=== PATIENT | female | born 1975 | race Caucasian/White ===

== ENCOUNTER 2020-10-21 09:14 | Emergency (ER) | payer OTHER ==
[2020-10-21 12:13] LABS: BUN/CREATININE RATIO 20 (0-10)
[2020-10-21 12:22] LABS: HEMOGLOBIN 14.6 gm/dl (12.3-15.3); RED BLOOD COUNT 5.72 M/UL (4.00-5.10); WHITE BLOOD COUNT 14.7 K/UL (4.5-11.0)
== END 2020-10-21 14:50 | disposition short-term general hospital (02) ==
LOC: ER1 09:14
PROVIDERS: Nurse Practitioner
DX: G93.89 Other specified disorders of brain (principal); F17.210 Nicotine dependence, cigarettes, uncomplicated
CPT/HCPCS: 0240U; 70450; 80053; 81001; 83605; 83690; 84703; 85025; 85610; 96374; 96376; 99285; J1100; J2405

== ENCOUNTER → 2020-12-13 | Outpatient (CLI) | payer OTHER | LOC: OPSV 10:42 | DX: C71.9 Malignant neoplasm of brain, unspecified (principal) | CPT/HCPCS: 36430; 85049; 86900; 86901; P9035 ==

== ENCOUNTER → 2021-04-14 | Outpatient (CLI) | payer OTHER ==
[~2021-04-14] MED LIST: BENADRYL25 MG PO; MEDROL4 MG PO
== END ==
LOC: MRI 14:00
DX: C71.1 Malignant neoplasm of frontal lobe (principal); D69.6 Thrombocytopenia, unspecified; G93.0 Cerebral cysts; R93.0 Abnormal findings on diagnostic imaging of skull and head, not elsewhere classified
CPT/HCPCS: 70553; A9577

== ENCOUNTER 2021-05-05 02:34 | Emergency (ER) | payer OTHER ==
[2021-05-05 03:23] LABS: HEMOGLOBIN 14.9 gm/dl (12.3-15.3); RED BLOOD COUNT 5.24 M/UL (4.00-5.10)
[2021-05-05 03:39] LABS: BUN/CREATININE RATIO 17 (0-10)
[2021-05-05] MEDS ORDERED: BENADRYL25 MG PO (04:08)
[2021-05-05] MEDS ORDERED: MEDROL4 MG PO (04:08)
== END 2021-05-05 04:15 | disposition home or self-care (01) ==
LOC: ER1 02:34
PROVIDERS: Physician Assistant
DX: L50.9 Urticaria, unspecified (principal); C50.919 Malignant neoplasm of unspecified site of unspecified female breast; J44.9 Chronic obstructive pulmonary disease, unspecified; Z85.3 Personal history of malignant neoplasm of breast
CPT/HCPCS: 80048; 85025; 87040; 96365; 96375; 99283; J1200; J2930; J7030

== ENCOUNTER → 2021-05-30 | Outpatient (CLI) | payer OTHER | LOC: CT 11:28 | DX: C71.1 Malignant neoplasm of frontal lobe (principal); D69.6 Thrombocytopenia, unspecified; R91.1 Solitary pulmonary nodule | CPT/HCPCS: 71260; Q9967 ==

== ENCOUNTER 2021-06-06 15:59 | Emergency (ER) | payer OTHER ==
[2021-06-06 17:02] LABS: HEMOGLOBIN 15.8 gm/dl (12.3-15.3); RED BLOOD COUNT 5.39 M/UL (4.00-5.10); WHITE BLOOD COUNT 14.4 K/UL (4.5-11.0)
[2021-06-06 17:37] LABS: BUN/CREATININE RATIO 18 (0-10)
[2021-06-06] MEDS ORDERED: KEPPRA1000 MG PO (20:03)
== END 2021-06-06 20:30 | disposition home or self-care (01) ==
LOC: ER1 15:59
PROVIDERS: Family Medicine
DX: R56.9 Unspecified convulsions (principal); S00.03XA Contusion of scalp, initial encounter; D69.6 Thrombocytopenia, unspecified; X58.XXXA Exposure to other specified factors, initial encounter
CPT/HCPCS: 70450; 70553; 71045; 80053; 80307; 81001; 82550; 82553; 83605; 83874; 84484; 85025; 96374; 96375; 99285; A9577; J1953; J2060

== ENCOUNTER → 2021-09-11 | Outpatient (CLI) | payer OTHER ==
[~2021-09-11] MED LIST changes: +KEPPRA1000 MG PO
== END ==
LOC: MRI 09-08 13:00
DX: C71.1 Malignant neoplasm of frontal lobe (principal); D69.6 Thrombocytopenia, unspecified
CPT/HCPCS: 70553; A9577

== ENCOUNTER 2021-12-15 15:42 | Emergency (ER) | payer OTHER ==
[2021-12-15 16:46] LABS: HEMOGLOBIN 14.3 gm/dl (12.3-15.3); RED BLOOD COUNT 5.4 M/UL (4.00-5.10); WHITE BLOOD COUNT 11.5 K/UL (4.5-11.0)
[2021-12-15 17:03] LABS: BUN/CREATININE RATIO 21 (0-10)
[2021-12-15] MEDS ORDERED: DECADRON6 MG PO (18:15)
== END 2021-12-15 18:37 | disposition home or self-care (01) ==
LOC: ER1 15:42
PROVIDERS: Family Medicine
DX: C71.9 Malignant neoplasm of brain, unspecified (principal); E66.9 Obesity, unspecified; R29.6 Repeated falls
CPT/HCPCS: 80053; 85025; 93005; 99285

== ENCOUNTER → 2022-01-08 | Day surgery (SDC) | payer OTHER ==
[~2022-01-08] MED LIST changes: +ALPRAZOLAM0.5 MG PO; +CITALOPRAM HBR40 MG PO; +DECADRON6 MG PO; +DEXAMETHASONE 44 MG PO; +HYDROXYZINE HCL10 MG PO; +MELATONIN10 MG PO; +ONDANSETRON ODT8 MG SL; +OXYCODON-ACETA1 EAC1 PO; +PROMACTA50 MG PO; +SYMBICORT 16010.2 GM INH; +TYLENOL EXTRA500 MG PO
[2022-01-08 07:29] LABS: BUN/CREATININE RATIO 49 (0-10)
== END | disposition home or self-care (01) ==
LOC: OR 06:10
PROVIDERS: Surgery
DX: C71.9 Malignant neoplasm of brain, unspecified (principal); J44.9 Chronic obstructive pulmonary disease, unspecified; E66.01 Morbid (severe) obesity due to excess calories; Z68.43 Body mass index [BMI] 50.0-59.9, adult; Z79.899 Other long term (current) drug therapy; Z20.822 Contact with and (suspected) exposure to COVID-19; Z87.891 Personal history of nicotine dependence
CPT/HCPCS: 36415; 71045; 77001; 80048; 84703; C1769; C1788; J0690; J1100; J1642; J2001; J2250; J2405; J2704; J3010; J7040; J7120

== ENCOUNTER → 2022-01-21 | Outpatient (CLI) | payer OTHER | LOC: US 16:30 | DX: C71.1 Malignant neoplasm of frontal lobe (principal); D69.6 Thrombocytopenia, unspecified; F41.9 Anxiety disorder, unspecified | CPT/HCPCS: 93970 ==

== ENCOUNTER → 2022-03-03 | Day surgery (SDC) | payer OTHER ==
[~2022-03-03] MED LIST changes: +LASIX40 MG PO; +PERCOCET 5-3251 EACH PO; +POTASSIUM CHLO20 ME2 PO; +PREDNISONE5 MG PO
== END | disposition home or self-care (01) ==
LOC: OR 08:10
DX: T82.594A Other mechanical complication of infusion catheter, initial encounter (principal); C71.9 Malignant neoplasm of brain, unspecified; Z79.899 Other long term (current) drug therapy
CPT/HCPCS: 84703; C1769; C1788; J0690; J1100; J1170; J1642; J2001; J2250; J2405; J2704; J3010; J3370; J7040

== ENCOUNTER 2022-05-28 11:16 | Emergency (ER) | payer OTHER ==
[~2022-05-28 11:16] MED LIST changes: +CITALOPRAM HBR20 MG PO; -CITALOPRAM HBR40 MG PO; -PERCOCET 5-3251 EACH PO; +PERCOCET 7.5-31 EACH PO
[2022-05-28 12:53] LABS: HEMOGLOBIN 15.4 gm/dl (12.3-15.3); RED BLOOD COUNT 6.02 M/UL (4.00-5.10); WHITE BLOOD COUNT 14.4 K/UL (4.5-11.0)
[2022-05-28 13:18] LABS: BUN/CREATININE RATIO 32 (0-10)
[2022-06-04] MEDS ORDERED: DIFLUCAN200 MG PO (09:55)
[2022-06-04] MEDS ORDERED: ONDANSETRON ODT8 MG PO (09:55)
[2022-06-04] MEDS ORDERED: VITAMIN C1000 MG PO (09:56)
[2022-06-05] MEDS ORDERED: PROMACTA50 MG PO (08:52)
== END 2022-05-28 16:54 | disposition home or self-care (01) ==
LOC: ER1 11:16
PROVIDERS: Emergency Medicine
DX: S80.02XA Contusion of left knee, initial encounter (principal); D72.829 Elevated white blood cell count, unspecified; J44.9 Chronic obstructive pulmonary disease, unspecified; F17.290 Nicotine dependence, other tobacco product, uncomplicated; Z86.011 Personal history of benign neoplasm of the brain; W19.XXXA Unspecified fall, initial encounter
CPT/HCPCS: 70450; 71045; 73564; 80053; 81001; 82550; 82553; 83605; 84484; 85025; 87086; 93005; 99284